=== PATIENT | female | born 1965 | race Caucasian/White ===

== ENCOUNTER → 2016-11-23 | Outpatient (CLI) | payer MEDICARE ==
--- NOTE | 2016-11-23 14:23 | MR ---
EXAMINATION TYPE: MR cervical spine wo con DATE OF EXAM: 11/23/2016 1:45 PM COMPARISON: Cervical spine 18 October 2016 HISTORY: cervcial pain TECHNIQUE: Multiplanar, multisequence images of the cervical spine were acquired. C2-C3: No evidence for degenerative disc disease. No disc bulge/herniation or protrusion. No Canal stenosis. Foramina are patent bilaterally. C3-C4: No evidence for degenerative disc disease. No disc bulge/herniation or protrusion. No Canal stenosis. Foramina are patent bilaterally. C4-C5: Mild posterior broad-based disc bulge causes slight anterior mass effect on the thecal sac. No significant stenosis centrally or within foramina C5-C6: Mild posterior broad-based disc bulge causes slight anterior mass effect on the thecal sac. No significant central stenosis or foraminal encroachment C6-C7: There is left posterior paracentral extension of endplate disc complex causing anterolateral m ass effect on the thecal sac, mild central stenosis, there is left-sided foraminal encroachment due t o uncovertebral joint hypertrophy facet arthropathy. C7-T1: No evidence for degenerative disc disease. No disc bulge/herniation or protrusion. No Canal stenosis. Foramina are patent bilaterally. Cervical segments are intact. There is normal alignment. Cervical spinal cord is showing some quest ionable increased signal at the posterior aspect of the cord to the left of midline on axial image 38 and 39. Craniovertebral junction relationships are within normal limits. There is mild multilevel spondylosis. Some loss of disc height present at C4-5, C5-6, C6-7. IMPRESSION: Degenerative disc disease as described. There may be some underlying demyelination within the cervica l cord as described.
== END | disposition home or self-care (01) ==
LOC: RADMRIMAIN 13:16
PROVIDERS: ATTEND Family Medicine
DX: M50.30 Other cervical disc degeneration, unspecified cervical region (principal)
CPT/HCPCS: 72141

== ENCOUNTER → 2017-09-14 | Outpatient (CLI) | payer MEDICARE ==
--- NOTE | 2017-09-14 12:06 | XR ---
EXAM TYPE: LUMBAR SPINE X RAY SERIES COMPARISON: NONE HISTORY: Pain TECHNIQUE: 4 views are submitted. FINDINGS: Alignment is anatomic. The pedicles are intact. The transverse processes are intact. There is no s pondylolysis or spondylolisthesis. Arthropathy of the facet joints noted particularly at L5-S1. IMPRESSION: 1. No acute process.
== END | disposition home or self-care (01) ==
LOC: RADXRMAIN 11:48
PROVIDERS: ATTEND Family Medicine
DX: M54.5 Low back pain (principal)
CPT/HCPCS: 72110

== ENCOUNTER → 2017-12-03 | Outpatient (CLI) | payer MEDICARE ==
--- NOTE | 2017-12-04 14:47 | MM ---
Reason for exam: screening (asymptomatic). Last mammogram was performed 1 year and 8 months ago. History: Patient is postmenopausal and history of other cancer. Family history of breast cancer in daughter at age 33. Physical Findings: A clinical breast exam by your physician is recommended on an annual basis and results should be correlated with mammographic findings. MG 3D Screening Mammo W/Cad Bilateral CC and MLO view(s) were taken. Prior study comparison: April 14, 2016, right breast MG 3d work up w/cad RT. April 11, 2016, bilateral MG 3d screening mammo w/cad. The breast tissue is heterogeneously dense. This may lower the sensitivity of mammography. Finding: There are typically benign round calcifications in both breasts. There is no discrete abnormality. ASSESSMENT: Benign, BI-RAD 2 RECOMMENDATION: Routine screening mammogram of both breasts in 1 year.
== END | disposition home or self-care (01) ==
LOC: RADMAMWWP 08:25
PROVIDERS: ATTEND Family Medicine
DX: Z12.31 Encounter for screening mammogram for malignant neoplasm of breast (principal)
CPT/HCPCS: 77063; 77067

== ENCOUNTER 2019-04-10 17:55 | Emergency (ER) | payer MEDICARE, OTHER ==
[2019-04-10 18:10] VITALS: BP 160/92; PULSE 79; RESP 16; TEMP 97.8
[2019-04-10] MEDS ORDERED: LIDOCAINE 1% INJ 10MG/ML (20 ML MDV) SQ ONE (18:16)
[2019-04-10] MEDS ORDERED: DIPH,PERTUS(ACELL)TETVAC-LF 0.5 ML VIAL IM ONE (18:18)
--- NOTE | 2019-04-10 19:55 | ED ---
General Adult HPI - General Chief complaint: Wound/Laceration Stated complaint: rt hand lac Time Seen by Provider: 04/10/19 18:16 Source: patient Mode of arrival: ambulatory Limitations: no limitations - History of Present Illness Initial comments: Patient is a 53-year-old female presenting to emergency Department with a laceration between the first and second digit on the right hand. Patient states that she was playing with a stick when she broke it off and lacerated the palmar region between the first and second digits. Patient denies numbness or tingling at the site of laceration. Patient denies any numbness tingling, erythema or swelling. Patient states that she has full range of motion but is not limited to pain. Patient denies any discharge from laceration site patient is unaware of her tetanus status patient is not on blood thinners. - Related Data Home Medications Medication Instructions Recorded Confirmed Citalopram Hydrobromide [CeleXA] 20 mg PO HS 11/02/15 08/03/17 HYDROcodone/APAP 10-325MG [[place] 0.5 tab PO DAILY PRN 11/02/15 08/03/17 10-325] ALPRAZolam [Xanax] 1 mg PO HS 08/03/17 08/03/17 Metoprolol Tartrate [Lopressor] 25 mg PO HS 08/03/17 08/03/17 Omeprazole 20 mg PO HS 08/03/17 08/03/17 Previous Rx's Medication Instructions Recorded Cyclobenzaprine [Flexeril] 10 mg PO TID #20 tab 08/03/17 Ibuprofen [Motrin] 600 mg PO Q6HR PRN #40 day 08/03/17 Cephalexin [Keflex] 500 mg PO Q6HR 3 Days #12 cap 04/10/19 Allergies Allergy/AdvReac Type Severity Reaction Status Date / Time No Known Allergies Allergy Verified 04/10/19 18:09 Review of Systems ROS Statement: Those systems with pertinent positive or pertinent negative responses have been documented in the HPI. ROS Other: All systems not noted in ROS Statement are negative. Past Medical History Past Medical History: No Reported History History of Any Multi-Drug Resistant Organisms: None Reported Past Surgical History: No Surgical Hx Reported Past Psychological History: No Psychological Hx Reported Smoking Status: Current every day smoker Past Alcohol Use History: Rare Past Drug Use History: Marijuana General Exam Limitations: no limitations General appearance: alert, in no apparent distress Head exam: Present: atraumatic, normocephalic, normal inspection Eye exam: Present: normal appearance, PERRL, EOMI Pupils: Present: normal accommodation ENT exam: Present: normal exam Neck exam: Present: normal inspection Respiratory exam: Present: normal lung sounds bilaterally Cardiovascular Exam: Present: regular rate, normal rhythm, normal heart sounds Extremities exam: Present: full ROM, normal capillary refill, other (+2 ulnar and radial pulses, bilaterally. 2 cm laceration between first and second digit on the right palmar surface. No erythema, swelling or discharge.). Absent: tenderness Back exam: Present: normal inspection, full ROM Neurological exam: Present: alert, oriented X3 Psychiatric exam: Present: normal affect, normal mood Skin exam: Present: warm, intact, normal color Course Vital Signs 04/10/19 18:07 Temperature 97.8 F Pulse Rate 79 Respiratory 16 Rate Blood Pressure 160/92 O2 Sat by Pulse 96 Oximetry Procedures - Laceration Laceration #1 Consent Obtained: verbal consent Indication: laceration Site: hand (Right hand between first and second digit on palmar surface) Size (cm): 2 Description: linear Depth: simple, single layer Anesthetic Used: lidocaine 1% Anesthesia Technique: local infiltration Amount (mls): 10 Pre-repair: irrigated extensively Type of Sutures: nylon Size of Sutures: 4-0 Number of Sutures: 2 Technique: simple, interrupted Patient Tolerated Procedure: well Medical Decision Making - Medical Decision Making Patient is a 53-year-old female presents emergency Department with a laceration between her first and second digits on her right hand. Laceration site was repaired with 2 sutures. Patient tolerated procedure well. Patient advised to return to the emergency department for suture removal in 10-14 days. Patient advised to follow primary care. Strict return parameters were thoroughly discussed with patient who is understanding an acceptable. Patient will also be prescribed Keflex for possible prophylaxis for infection. Patient advised to follow proper wound care instructions. Case discussed with physician. Disposition Clinical Impression: Laceration Disposition: HOME SELF-CARE Condition: Stable Instructions (If sedation given, give patient instructions): Care For Your Stitches (DC), Laceration (DC) Additional Instructions: Please a prescribed medication as directed. Please return in 10 days for suture removal. Please return to emergency department if symptoms worsen. Prescriptions: Cephalexin [Keflex] 500 mg PO Q6HR 3 Days #12 cap Is patient prescribed a controlled substance at d/c from ED?: No Referrals: Isidro Peterson DO [Primary Care Provider] - 1-2 days Time of Disposition: 19:55
== END 2019-04-10 20:06 | disposition home or self-care (01) ==
LOC: EC 17:55
DX: S61.411A Laceration without foreign body of right hand, initial encounter (principal); F17.200 Nicotine dependence, unspecified, uncomplicated; Z23 Encounter for immunization; Z79.899 Other long term (current) drug therapy; W26.8XXA Contact with other sharp object(s), not elsewhere classified, initial encounter
CPT/HCPCS: 90715; 99282; 12001; 90471; J2001

== ENCOUNTER → 2024-04-01 | Outpatient (CLI) | payer MEDICARE | LOC: CPPFTMAIN 15:11 | PROVIDERS: ATTEND Family Medicine | DX: R94.2 Abnormal results of pulmonary function studies (principal); I73.9 Peripheral vascular disease, unspecified; F17.200 Nicotine dependence, unspecified, uncomplicated | CPT/HCPCS: 94060; 94726; 94729 ==

== ENCOUNTER 2024-10-07 09:03 | Day surgery (SDC) | payer MEDICARE ==
[2024-10-06 09:08] VITALS: BMI 18.2
[2024-10-07] MEDS ORDERED: LIDOCAINE 1% (10MG/ML) FOR IV START INTRADERMA PRN (09:19)
[2024-10-07 09:44] VITALS: TEMP 98.5
[2024-10-07] MEDS: LACTATED RINGERS 1,000 ML IV SCH (09:47)
[2024-10-07] MEDS: IV FLUID CONTINUATION 1,000 ML IV ONE (09:50)
[2024-10-07] MEDS ORDERED: LIDOCAINE 1% INJ 10MG/ML (20 ML MDV) ONE (09:54)
[2024-10-07] MEDS ORDERED: PROPOFOL 10 MG/ML 20 ML VIAL IV ONE (09:54)
--- NOTE | 2024-10-07 09:56 | P.GSHP ---
History of Present Illness H&P Date: 10/07/24 Chief Complaint: Abnormal stool test 59-year-old female here for colonoscopy. Patient had recent stool test that was abnormal. No bowel complaints. No rectal bleeding. Has not had a colonoscopy. No family history of colon cancer. Past Medical History Past Medical History: Eye Disorder, GERD/Reflux, Hypertension Additional Past Medical History / Comment(s): Legally Blind. History of Any Multi-Drug Resistant Organisms: None Reported Past Surgical History: No Surgical Hx Reported Additional Past Surgical History / Comment(s): Brain biopsy. Past Anesthesia/Blood Transfusion Reactions: No Reported Reaction Smoking Status: Current every day smoker - Past Family History Mother Family Medical History: Cancer Additional Family Medical History / Comment(s): Lung cancer. Medications and Allergies Home Medications Medication Instructions Recorded Confirmed Type ALPRAZolam [Xanax] 1 mg PO HS 08/03/17 10/07/24 History Metoprolol Tartrate [Lopressor] 25 mg PO HS 08/03/17 10/07/24 History Omeprazole 20 mg PO HS 08/03/17 10/07/24 History Allergies Allergy/AdvReac Type Severity Reaction Status Date / Time No Known Allergies Allergy Verified 10/07/24 09:32 Surgical - Exam Vital Signs Temp Pulse Resp BP Pulse Ox 98.5 F 61 14 142/65 95 10/07/24 09:43 10/07/24 09:43 10/07/24 09:43 10/07/24 09:43 10/07/24 09:43 Physical exam: General: Well-developed, well-nourished HEENT: Normocephalic, sclerae nonicteric Abdomen: Nontender, nondistended Extremities: No edema Neuro: Alert and oriented Assessment and Plan (1) Abnormal stool test Narrative/Plan: Will proceed with colonoscopy at this time. Current Visit: Yes Status: Acute Code(s): R19.5 - OTHER FECAL ABNORMALITIES SNOMED Code(s): 036862323
--- NOTE | 2024-10-07 10:12 | P.PCN ---
Date of Procedure: 10/07/24 Procedure(s) Performed: PREOPERATIVE DIAGNOSIS: Abnormal Cologuard POSTOPERATIVE DIAGNOSIS: Normal exam PROCEDURE: Colonoscopy ANESTHESIA: MAC SURGEON: Leonel Cruz M.D. SPECIMENS: None ENDOSCOPIC PROCEDURE: The patient was placed on the endoscopy table in the left decubitus position. The Olympus colonoscope was inserted into the anus and passed under direct visualization to the base of the cecum. The appendiceal orifice was visualized. From that point the scope was slowly withdrawn inspecting all surfaces carefully. There were no neoplastic inflammatory or polypoid lesions throughout the cecum, ascending, transverse, descending, sigmoid and rectum. There was no visible diverticulosis noted. Digital rectal examination was normal. The patient was taken to the recovery room in stable condition per anesthesia guidelines. RECOMMENDATIONS: Resume diet. Repeat colonoscopy 10 years.
[2024-10-07 10:19] VITALS: RESP 16
[2024-10-07 10:40] VITALS: BP 123/60; PULSE 49
== END 2024-10-07 10:45 | disposition home or self-care (01) ==
LOC: ORWHC2ENDO 09:03
PROVIDERS: ATTEND Surgery
DX: K21.9 Gastro-esophageal reflux disease without esophagitis (principal); I10 Essential (primary) hypertension; J44.89 Other specified chronic obstructive pulmonary disease; F17.210 Nicotine dependence, cigarettes, uncomplicated; Z80.1 Family history of malignant neoplasm of trachea, bronchus and lung; Z79.899 Other long term (current) drug therapy
CPT/HCPCS: 45378; J2003; J2704